=== PATIENT | female | born 1990 | race Two or more races ===

== ENCOUNTER 2020-08-12 19:36 | Emergency (ER) | payer BC, MEDICAID ==
[~2020-08-12] VITALS: Ht 167.6 cm; Wt 74.8 kg
[2020-08-12 19:38] VITALS: BP 131/79
== END 2020-08-13 00:12 | disposition left against medical advice (07) ==
LOC: EDBD 19:39 → ER 19:39
DX: M54.5 Low back pain (principal); Z53.21 Procedure and treatment not carried out due to patient leaving prior to being seen by health care provider